=== PATIENT | male | born 2000 | race African-American/Black ===

== ENCOUNTER 2021-04-19 15:28 | Emergency (ER) | payer OTHER ==
[~2021-04-19] VITALS: Ht 175.3 cm; Wt 54.4 kg
[2021-04-19 15:42] VITALS: BP 135/80
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
[2021-04-19] MEDS ORDERED: CYCL10TA9 PO (16:57)
[2021-04-19] MEDS ORDERED: IBUP-1780 PO (16:57)
== END 2021-04-19 17:01 | disposition home or self-care (01) ==
LOC: EDSEX 15:29 → ER FS 15:29
DX: S16.1XXA Strain of muscle, fascia and tendon at neck level, initial encounter (principal); S63.502A Unspecified sprain of left wrist, initial encounter; F17.290 Nicotine dependence, other tobacco product, uncomplicated; V89.2XXA Person injured in unspecified motor-vehicle accident, traffic, initial encounter
CPT/HCPCS: 72125; 73110